=== PATIENT | male | born 1985 | race Caucasian/White ===

== ENCOUNTER 2020-08-14 09:44 | Outpatient (REF) | payer OTHER, SELFPAY | END 2020-08-14 09:45 | disposition home or self-care (01) | LOC: HO.LAB 09:44 | PROVIDERS: Visit Provider Internal Medicine | DX: Z20.828 Contact with and (suspected) exposure to other viral communicable diseases (principal) | CPT/HCPCS: C9803; U0003 ==

== ENCOUNTER 2021-04-27 10:59 | Outpatient (REF) | payer OTHER, SELFPAY ==
[2021-04-27 14:01] LABS: MANUAL DIFF FLAG NO
[2021-04-27 14:05] LABS: Basophils Percent Auto 0.3 % (0-2); Eosinophils Absolute Auto 0.2 X10*3/uL (0.0-0.4); Eosinophils Percent Auto 3.7 % (0-4); Hematocrit 44.9 % (42-52); Hemoglobin 14.6 g/dl (14.0-18.0); Imm Gran Abs Auto 0.01 X10*3/uL (0.00-0.03); Imm Gran Pct Auto 0.2 % (0.0-0.4); Lymphocytes Absolute Auto 1.5 X10*3/uL (1.2-4.9); Lymphocytes Percent Auto 24.3 % (20-40); Mean Corpuscular HGB Conc 32.5 g/dl (31.0-36.0); Mean Corpuscular Hemoglobin 29.2 pg (27.0-33.0); Mean Corpuscular Volume 89.8 fL (80-98); Mean Platelet Volume 10.8 fL (9.4-12.4); Monocytes Absolute Auto 0.5 X10*3/uL (0.1-1.2); Monocytes Percent Auto 8.8 % (2-11); Neutrophils Absolute Auto 3.8 X10*3/uL (2.0-8.3); Neutrophils Percent Auto 62.7 % (45-73); Platelet Count 265 X10*3/uL (160-400); Red Cell Distribution Width 12.7 % (11.0-16.0)
[2021-04-27 14:14] LABS: Anion Gap 11 (12-20); Blood Urea Nitrogen 13 mg/dL (9-16); C Reactive Protein 2.92 mg/dL (< or = 0.50); Calcium 9.5 mg/dL (8.4-10.2); Carbon Dioxide 30 mmol/L (22-29); Chloride 101 mmol/L (96-108); Estimated Glomerular Filt Rate > 60; Glucose Random 107 mg/dL (60-115); Potassium 4.9 mmol/L (3.3-5.1); Sodium 137 mmol/L (135-145)
[2021-04-27 14:49] LABS: Erythrocyte Sedimentation Rate 7 MM/HR (0-15)
[2021-04-28 21:32] LABS: Lyme Abs Screen <0.90 index
[2021-05-13 01:52] LABS: A. Phagocytophilum Ab IgG <1:64 (<1:64); A. Phagocytophilum Ab IgM <1:20 (<1:20); E. Chaffeensis Ab IgG <1:64 (<1:64); E. Chaffeensis Ab IgM <1:20 (<1:20)
== END 2021-04-27 11:00 | disposition home or self-care (01) ==
LOC: HO.HMGCLDS 10:59
PROVIDERS: PCP Nurse Practitioner Family; Visit Provider Nurse Practitioner Family
DX: Z01.84 Encounter for antibody response examination (principal); R20.0 Anesthesia of skin
CPT/HCPCS: 36415; 80048; 85025; 85652; 86140; 86617; 86618; 86666

== ENCOUNTER 2021-04-29 11:14 | Outpatient (REF) | payer OTHER, SELFPAY | END 2021-04-29 11:15 | disposition home or self-care (01) | LOC: HO.LAB 11:14 | PROVIDERS: Visit Provider Nurse Practitioner Family | DX: Z13.89 Encounter for screening for other disorder (principal) ==

== ENCOUNTER → 2021-06-21 10:46 | Outpatient (BNVA) | payer OTHER, SELFPAY | PROVIDERS: Visit Provider Orthopaedic Surgery ==

== ENCOUNTER 2021-06-28 12:36 | Day surgery (SDC) | payer OTHER, SELFPAY ==
[2021-06-28 12:51] VITALS: BP 122/69; PULSE 78; RESP 16; TEMP 36.9; O2SAT 98; BMI 26.5
--- NOTE | 2021-06-28 14:06 | MHC.SHP ---
Pre-Procedural Eval Section A Date of Service: 06/28/21 The patient is an INPATIENT: No The History & Physical has been completed within 30 days and I have reviewed it.: Yes Section B Chief Complaint: Carpal Tunnel Syndrome Allergies: Allergies Allergy/AdvReac Type Severity Reaction Status Date / Time No Known Allergies Allergy Verified 06/01/21 08:01 Plan I have reviewed the history and physical and performed a pertinent physical examination on my patient. No changes have occurred unless specified.
--- NOTE | 2021-06-28 14:06 | W.PM.OPN ---
Operative Note Operative Note Date of Service: 06/28/21 Narrative: Preop diagnosis: 1. Left Carpal tunnel syndrome Postop diagnosis: same Procedure: 1. Left Carpal tunnel release Surgeon: Joellen Brito MD Anesthesia: local block using 1% lidocaine with epinephrine Findings: Thickened transverse carpal ligament. EBL: Less than 5 mL Specimens: None Complications: None Disposition: Brought to recovery room in stable condition Plan: Follow-up for 7-10 days for wound check and suture removal Indications: The patient is 36 years old, with left carpal tunnel syndrome that has been unresponsive to nonoperative management. The risks and benefits of operative treatment including but not limited to risk of damage to blood vessels, nerves, tendons, infection, persistent pain, persistent symptoms, or possible need for additional surgery were discussed with the patient and the patient wishes to proceed with surgery. Procedure: Once consent was obtained a local block was performed using a combination of 1% lidocaine with epinephrine. The patient was then brought back to the operating suite and placed on the operative table in supine position. A tourniquet was applied to the proximal aspect of the left upper extremity and the limb was prepped and draped in a standard surgical fashion. Once assured that we had a good block, a 1.5 cm longitudinal incision was made centered over the carpal tunnel. The incision was made through the skin to the subcutaneous tissues using a #15 blade. Dissection was made down to the level of the transverse carpal ligament with care being taken to protect the palmar cutaneous nerve. Once the transverse carpal ligament was clearly visualized, a longitudinal incision was made in the transverse carpal ligament 1st using a #15 blade, then using tenotomy scissors under direct visualization. Care was taken to look for and protect the motor branch of the median nerve when seen in this area. Once satisfied with our carpal tunnel release the wound was copiously irrigated with normal saline and hemostasis was obtained with a brief period of local pressure. The skin edges were reapproximated with some 5.0 nylon suture material and a sterile dressing was applied. The patient appears to have tolerated the procedure well and with no complications. All digits were well vascularized at the conclusion of the case.
[2021-06-28 15:49] VITALS: BP 110/53; PULSE 60; RESP 18; O2SAT 100
== END 2021-06-28 16:06 ==
LOC: HO.SSS 12:37
PROVIDERS: PCP Nurse Practitioner Family; Visit Provider Orthopaedic Surgery
PROC: (CPT 64721; principal; 2021-06-28 15:00)
DX: G56.02 Carpal tunnel syndrome, left upper limb (principal)
CPT/HCPCS: 64721

== ENCOUNTER → 2021-07-07 10:38 | Outpatient (BNVA) | payer OTHER, SELFPAY | PROVIDERS: Visit Provider Orthopaedic Surgery ==

== ENCOUNTER → 2021-07-09 12:44 | Outpatient (BNVA) | payer OTHER, SELFPAY | PROVIDERS: Visit Provider Physician Assistant ==

== ENCOUNTER 2021-08-02 11:10 | Day surgery (SDC) | payer OTHER, SELFPAY ==
[2021-08-02 11:46] VITALS: BP 125/76; PULSE 80; RESP 19; TEMP 36.6; O2SAT 98; BMI 26.5
--- NOTE | 2021-08-02 13:52 | PC.NURSE ---
blocked performed by dr keyes at bedside timeout completed prior
--- NOTE | 2021-08-02 14:21 | W.PM.OPN ---
Operative Note Operative Note Date of Service: 08/02/21 Narrative: Preop diagnosis: 1. Right Carpal tunnel syndrome 2. Right middle finger trigger finger Postop diagnosis: same Procedure: 1. Right Carpal tunnel release 2. Right middle finger A1 delroy release Surgeon: Joellen Brito MD Anesthesia: local block using 1% lidocaine with epinephrine Findings: Thickened transverse carpal ligament. No locking and catching after A1 delroy release EBL: Less than 5 mL Specimens: None Complications: None Disposition: Brought to recovery room in stable condition Plan: Follow-up for 7-10 days for wound check and suture removal Indications: The patient is 36 years old, with right carpal tunnel syndrome that has been unresponsive to nonoperative management and a right middle finger trigger finger. The risks and benefits of operative treatment including but not limited to risk of damage to blood vessels, nerves, tendons, infection, persistent pain, persistent symptoms, or possible need for additional surgery were discussed with the patient and the patient wishes to proceed with surgery. Procedure: Once consent was obtained a local block was performed using a combination of 1% lidocaine with epinephrine. The patient was then brought back to the operating suite and placed on the operative table in supine position. A tourniquet was applied to the proximal aspect of the right upper extremity and the limb was prepped and draped in a standard surgical fashion. Once assured that we had a good block, a 1.5 cm longitudinal incision was made centered over the right carpal tunnel. The incision was made through the skin to the subcutaneous tissues using a #15 blade. Dissection was made down to the level of the transverse carpal ligament with care being taken to protect the palmar cutaneous nerve. Once the transverse carpal ligament was clearly visualized, a longitudinal incision was made in the transverse carpal ligament 1st using a #15 blade, then using tenotomy scissors under direct visualization. Care was taken to look for and protect the motor branch of the median nerve when seen in this area. Once assured that we had a good block, a 1.5 cm oblique incision was made centered over the A1 delroy of the right middle finger . The incision was made through the skin to the subcutaneous tissues using a #15 blade. Careful dissection was made down to the level of the A1 delroy using tenotomy scissors, with care being taken to protect the nearby neurovascular structures. A longitudinal incision was made in the A1 delroy 1st using a #15 blade, then using tenotomy scissors under direct visualization. The A1 delroy was noted to be thickened. Following our A1 delroy release, we no longer saw any locking or catching of the digit with flexion and extension. Once satisfied with our carpal tunnel release the wound was copiously irrigated with normal saline and hemostasis was obtained with a brief period of local pressure. The skin edges were reapproximated with some 5.0 nylon suture material and a sterile dressing was applied. The patient appears to have tolerated the procedure well and with no complications. All digits were well vascularized at the conclusion of the case.
[2021-08-02 14:50] VITALS: BP 130/70; PULSE 81; RESP 20; TEMP 37.2; O2SAT 99
--- NOTE | 2021-08-02 14:51 | MHC.SHP ---
Pre-Procedural Eval Section A Date of Service: 08/02/21 The patient is an INPATIENT: No Changes since office visit: Yes New Medical Problems The History & Physical has been completed within 30 days and I have reviewed it.: Yes Section B Chief Complaint: Right carpal tunnel syndrome, middle finger trigge Allergies: Allergies Allergy/AdvReac Type Severity Reaction Status Date / Time No Known Allergies Allergy Verified 07/09/21 12:49 Exam Surgical H&P Exam: Significant Findings: Extremities (Right middle finger trigger finger) Plan Diagnosis/Plan: Change I have reviewed the history and physical and performed a pertinent physical examination on my patient. No changes have occurred unless specified. Right carpal tunnel syndrome. He also presented today with a right middle finger trigger finger that has been bothering him in the mornings, but is now starting to bother him during the daytime. We discussed operative and non operative treatment options now also for the right middle finger trigger finger. He wished to proceed with surgery The risks and benefits of a trigger finger release were discussed with him and he wished to proceed with surgery.
== END 2021-08-02 15:09 | disposition home or self-care (01) ==
PROVIDERS: PCP Nurse Practitioner Family; Visit Provider Orthopaedic Surgery
PROC: (CPT 64721; principal; 2021-08-02 13:10)
DX: G56.01 Carpal tunnel syndrome, right upper limb (principal); M65.331 Trigger finger, right middle finger
CPT/HCPCS: 64721; 26055

== ENCOUNTER → 2021-08-11 12:27 | Outpatient (BNVA) | payer OTHER, SELFPAY | PROVIDERS: PCP Nurse Practitioner Family; Visit Provider Physician Assistant ==

== ENCOUNTER 2021-09-02 08:50 | Outpatient (REF) | payer OTHER, SELFPAY ==
[2021-09-02 11:26] LABS: Appearance Urine CLEAR; Color Urine YELLOW; Glucose Urine UA NEG (NEG); Leukocyte Esterase Urine NEG (NEG); Nitrite Urine NEG (NEG); Specific Gravity - Urine 1.025 (1.005-1.025); Urine Blood NEG (NEG); Urine Ketones NEG (NEG); Urine Protein NEG (NEG-TRACE)
[2021-09-02 11:58] LABS: Alanine Aminotransferase 41 U/L (0-40); Albumin Level 4.3 g/dL (3.5-5.0); Alkaline Phosphatase 80 U/L (39-117); Anion Gap 13 (12-20); Aspartate Amino Transferase 32 U/L (5-37); Bilirubin Total 0.4 mg/dL (0.0-1.0); Blood Urea Nitrogen 15 mg/dL (9-16); C Reactive Protein 0.13 mg/dL (< or = 0.50); Calcium 9.7 mg/dL (8.4-10.2); Carbon Dioxide 28 mmol/L (22-29); Chloride 104 mmol/L (96-108); Cholesterol 200 mg/dL; Estimated Glomerular Filt Rate > 60; Glucose Fasting 94 mg/dL (60-99); HDL Cholesterol 38 mg/dL; LDL Cholesterol Calculated 125 mg/dl; Potassium 4.5 mmol/L (3.3-5.1); Rheumatoid Factor < 15.0 IU/mL (<15.0); Sodium 140 mmol/L (135-145); Total Protein 6.9 g/dL (6.5-8.0); Triglycerides 189 mg/dL
[2021-09-02 12:05] LABS: TSH reflex Free T4 1.84 uIU/mL (0.32-4.0)
[2021-09-02 12:22] LABS: Erythrocyte Sedimentation Rate 2 MM/HR (0-15)
[2021-09-04 05:01] LABS: Lyme Abs Screen <0.90 index
[2021-09-06 07:26] LABS: Anti Nuclear Antibody Screen NEGATIVE (NEGATIVE)
[2021-09-06 15:55] LABS: Cyclic Citrullinated Peptide 23 UNITS
[2021-09-07 20:21] LABS: Testosterone, Free 26.3 pg/mL (35.0-155.0); Testosterone, Total 283 ng/dL (250-1100)
== END 2021-09-02 08:51 | disposition home or self-care (01) ==
LOC: HO.HMGCLDS 08:50
PROVIDERS: PCP Nurse Practitioner Family; Visit Provider Nurse Practitioner Family
DX: Z00.00 Encounter for general adult medical examination without abnormal findings (principal); M25.50 Pain in unspecified joint; F52.0 Hypoactive sexual desire disorder
CPT/HCPCS: 36415; 80053; 80061; 81003; 84402; 84403; 84443; 85652; 86038; 86039; 86140; 86200; 86431; 86617; 86618

== ENCOUNTER → 2021-09-15 08:46 | Outpatient (BNVA) | payer OTHER, SELFPAY | PROVIDERS: PCP Nurse Practitioner Family; Visit Provider Orthopaedic Surgery ==

== ENCOUNTER 2023-07-31 12:33 | Outpatient (AMB) | payer BC, SELFPAY ==
[2023-07-31 14:58] VITALS: BP 122/76; PULSE 86; TEMP 36.7; O2SAT 95; BMI 27.0
--- NOTE | 2023-07-31 14:58 | AM.OFFWIN_ITS ---
Intake Vital Signs 07/31/23 14:58 Height 5 ft 10 in Weight 188 lb 6 oz BMI 27.0 BP 122/76 Blood Pressure Location Rt brachial Position Sitting Pulse 86 Pulse Source Pulse Oximeter Temp 98.0 F Temp Source Temporal Artery Scan Pulse Oximetry (%) 95 Oxygen Delivery Method Room Air Intake Visit Reasons: EP, chest congestion, headache [phone] Intake Note: pt is here for c/o chest congestion, headache, possible pneumonia Patient Tobacco Use Status: Never used Tobacco Allergies No Known Allergies Allergy (Verified 07/31/23 14:58) Do you need a note to return to daycare/school/sports/work: Yes HPI EP, chest congestion, headache [phone] HPI Details 38-year-old male presents to the office for a sick visit. Patient is complaining of cough, sore throat and running nose for the past 3 days. Both his children are sick. This afternoon he started experiencing sharp right-sided chest pain radiating to the back. Symptoms were worse on inspiration. [facility] Surgical History History of carpal tunnel surgery of left wrist Family History Other Mental health disorder Substance use disorder Social History Housing: House Patient Tobacco Use Status: Never used Tobacco e-Cigarette/Vaping Use: Currently Using Second Hand Smoke Exposure: No Current occupational status: employed Current occupation: rt handed/electro platting Physical Exam Vital Signs: Last Vital Signs Temp 98.0 F 07/31/23 14:58 Pulse 86 07/31/23 14:58 BP 122/76 07/31/23 14:58 Pulse Ox 95 07/31/23 14:58 Oxygen Delivery Method Room Air 07/31/23 14:58 BMI result Body Mass Index 27.0 Const General: cooperative and healthy appearing Nutritional Appearance: well nourished Orientation/consciousness: patient oriented x3 Limitations: no limitations HEENT Head: Yes normal to inspection Eyes General: appearance normal, both eyes and all related structures Neck Neck: Yes normal visual inspection Chest Chest palpation & inspection: normal palpation of entire chest wall Resp Effort & Inspection: normal respiratory effort Neuro General: patient oriented x3 Assessment & Plan Assessment & Plan (1) Acute bronchitis: Code(s): J20.9 - Acute bronchitis, unspecified Plan Chest x-ray was reviewed by me personally. It looked like patient has bilateral infiltrates. I encouraged the patient to go to the emergency room if he was having more chest pain discomfort. Antibiotics called in. Blood work ordered. Inhalers called in. Prednisone ordered. If symptoms do not improve to follow- up here. Orders: Orders XR chest 2V Today R05.9 - Cough, unspecified SARS-CoV2/FLU/RSV Today R43.9 - Unspecified disturbances of smell and taste Coding Level of Care Code Est Pt Level 4 (41828) Diagnoses Acute bronchitis J20.9
== END 2023-07-31 16:10 | disposition home or self-care (01) ==
PROVIDERS: PCP Nurse Practitioner Family; Visit Provider Internal Medicine
DX: J20.9 Acute bronchitis, unspecified (principal)
CPT/HCPCS: 99214

== ENCOUNTER 2023-07-31 15:43 | Outpatient (REF) | payer BC, SELFPAY ==
--- NOTE | ~2023-07-31 | XR_ITS ---
EXAMINATION: XR CHEST CLINICAL INFORMATION: Cough COMPARISON: None available. TECHNIQUE: 2 views of the chest were obtained. FINDINGS: Cardiac silhouette is normal in size. The lungs are adequately aerated. Subtle ill-defined patchy opacities project over both lower lungs, nonspecific. There is no lobar consolidation. No pleural effusion or pneumothorax. No acute osseous abnormality. XR/XR chest 2V IMPRESSION: Subtle ill-defined patchy opacities project over both lower lungs. I suspect this represents attenuation artifact from overlying structures, however, given there is no prior imaging available for comparison, I cannot exclude an infectious process. Clinical correlation is recommended. Follow-up imaging/additional imaging may be warranted.
== END 2023-07-31 15:44 | disposition home or self-care (01) ==
LOC: HO.HMGCX 15:43
PROVIDERS: Visit Provider Internal Medicine
DX: R05.9 Cough, unspecified (principal)
CPT/HCPCS: 71046

== ENCOUNTER 2023-07-31 15:47 | Outpatient (REF) | payer BC, SELFPAY ==
[2023-08-01 12:42] LABS: Influenza A PCR NEGATIVE (Negative); Influenza B PCR NEGATIVE (Negative); Resp Syncy Virus RNA Qual PCR NEGATIVE (Negative); SARS COV2 PCR INHOUSE NEGATIVE (Negative)
== END 2023-07-31 15:48 | disposition home or self-care (01) ==
LOC: HO.LAB 15:47
PROVIDERS: Visit Provider Internal Medicine
DX: Z11.52 Encounter for screening for COVID-19 (principal); Z20.822 Contact with and (suspected) exposure to COVID-19; R43.9 Unspecified disturbances of smell and taste
CPT/HCPCS: 0241U